=== PATIENT | male | born 1975 | race Caucasian/White ===

== ENCOUNTER 2016-07-15 20:01 | Emergency (ER) | payer OTHER ==
[~2016-07-15] VITALS: Ht 182.9 cm; Wt 72.8 kg
[~2016-07-15 20:01] MED LIST: Ecotrin PO; MOTRIN800 MG PO; NORCO 7.5/321 TABLET PO; Prevacid PO
[2016-07-15] MEDS ORDERED: PERCOCET 5/31 TABLET PO (23:08)
[2016-07-16 00:02] VITALS: BP 128/65
== END 2016-07-16 00:12 | disposition home or self-care (01) ==
LOC: EXP 20:01 → EME 20:01 → EXP 07-16 00:12
PROC: 0PSJXZZ Reposition Left Radius, External Approach (ICD-10-PCS; principal; 2016-07-15)
DX: S52.502A Unspecified fracture of the lower end of left radius, initial encounter for closed fracture (principal); S52.612A Displaced fracture of left ulna styloid process, initial encounter for closed fracture; W10.9XXA Fall (on) (from) unspecified stairs and steps, initial encounter
CPT/HCPCS: 73100; 73110; 99281; 99285; J1170; J1885; J7030